=== PATIENT | female | born 1945 | race Caucasian/White ===

== ENCOUNTER 2017-10-19 14:01 | Emergency (ER) | payer MEDICARE, OTHER ==
[2017-10-19] MEDS: KETOROLAC 15 MG INJ IM (18:08)
== END 2017-10-19 18:20 | disposition home or self-care (01) ==
LOC: FTE 14:01
DX: I80.01 Phlebitis and thrombophlebitis of superficial vessels of right lower extremity (principal); I10 Essential (primary) hypertension
CPT/HCPCS: 93971; 96372; 99285-25